=== PATIENT | male | born 1975 | race Caucasian/White ===

== ENCOUNTER 2020-02-04 09:38 | Day surgery (SDC) | payer OTHER ==
[~2020-02-04] VITALS: Ht 175.3 cm; Wt 87.4 kg
[2020-02-04 10:56] VITALS: BP 124/90; PULSE 64; TEMP 98.1
[2020-02-04 14:00] VITALS: BP 138/86; PULSE 78; TEMP 98.2
--- NOTE | 2020-02-04 14:00 | NUR ---
Pt to [facility] bay 6 via cart from ENDO. Pt awake and alert. Pt having small amounts of bleeding from nares. Ice pack provided. Water, applesauce given per pt request. Pt refuses drip pad at this time. Pt denies pain or nausea. Call light within reach.
[2020-02-04 14:15] VITALS: BP 121/82; PULSE 71
--- NOTE | 2020-02-04 14:15 | NUR ---
Pt continues to rest. No change in bleeding. Denies needs. Will continue to monitor.
[2020-02-04 14:30] VITALS: BP 121/82; PULSE 68
--- NOTE | 2020-02-04 14:30 | NUR ---
Pt continues to rest. Pt states "I think the bleeding is starting to slow down." Pt tolerating food and fluids without difficulties. Will continue to monitor. Call light within reach.
[2020-02-04 14:45] VITALS: BP 138/76; PULSE 79
--- NOTE | 2020-02-04 14:45 | NUR ---
Pt continues to rest. Denies needs. Call light within reach.
[2020-02-04] MEDS ORDERED: NORCO 325 MG-7.1 TAB PO (14:47)
[2020-02-04] MEDS ORDERED: CEPHALEXIN500 M1 PO (14:47)
--- NOTE | 2020-02-04 15:00 | NUR ---
Pt up to restroom with stand by assist. Pt voids without difficulties. Pt back to room. IV site discontinued with all parts intact. Will assist pt with dressing to avoid bending over. Will continue to monitor. Call light within reach.
--- NOTE | 2020-02-04 15:20 | NUR ---
Discharge instructions reviewed. Pt voices understanding. IV site discontinued with all parts intact. Pt escorted to private car via wheel chair. Pt accompanied home by his .
[2020-02-04 17:19] VITALS: BP 138/86; PULSE 77; TEMP 98.3
== END 2020-02-04 15:20 | disposition home or self-care (01) ==
LOC: SDCO 09:38
DX: J34.2 Deviated nasal septum (principal); J34.3 Hypertrophy of nasal turbinates; G47.33 Obstructive sleep apnea (adult) (pediatric); J30.2 Other seasonal allergic rhinitis; J34.89 Other specified disorders of nose and nasal sinuses
CPT/HCPCS: J0330; J0690; J1100; J1885; J2405; J2704; J3010; J7120

== ENCOUNTER 2020-04-27 08:33 | Day surgery (SDC) | payer OTHER ==
[~2020-04-27] VITALS: Ht 175.3 cm; Wt 86.6 kg
[~2020-04-27 08:33] MED LIST: CEPHALEXIN500 M1 PO; NORCO 325 MG-7.1 TAB PO
[2020-04-27 09:26] VITALS: BP 133/86; PULSE 46; TEMP 97.7
--- NOTE | 2020-04-27 09:34 | NUR ---
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
--- NOTE | 2020-04-27 10:50 | NUR ---
AMBULATED TO BATHROOM AND TOLERATED WELL.
--- NOTE | 2020-04-27 11:11 | NUR ---
DR VAZQUEZ IS TALKING WITH PATIENT AND .
[2020-04-27 13:10] VITALS: BP 154/90; PULSE 61; TEMP 97.4
--- NOTE | 2020-04-27 13:10 | NUR ---
TO RM 7 PER CART FROM PACU. DROWSY, BUT ORIENTED X3 TALKING TO STAFF AND . DENIES PAIN OR DISOCMFORT. DENIES NAUSEA OR VOMITING.
[2020-04-27 13:25] VITALS: BP 142/84; PULSE 62
--- NOTE | 2020-04-27 13:25 | NUR ---
PATIENT C/O O2 TUBING ITCHING HIS NOSE AND REMOVED. O2 SAT 93% ON ROOM AIR. RECEIVED WATER AND TAKING SIPS.
[2020-04-27 13:40] VITALS: BP 148/79; PULSE 52
--- NOTE | 2020-04-27 13:40 | NUR ---
CONTINUES TO DOZE ON AND OFF. TAKING SIPS OCCASIONALLY
[2020-04-27 13:55] VITALS: BP 118/83; PULSE 58
--- NOTE | 2020-04-27 13:55 | NUR ---
RESTING AND STATED HE FEELS "PRETTY GOOD"
--- NOTE | 2020-04-27 14:25 | NUR ---
AMBULATED TO BATHROOM WITH STAND BY ASSIST. VOIDED AND AMBULATED BACK TO BED.
--- NOTE | 2020-04-27 14:40 | NUR ---
RECEIVED DISCHARGE INSTRUCTIONS VERBALIZED UNDERSTANDING. DURING SIGNING HIS HIS DISCHARGE INSTRUCTIONS FELT DIZZY AND BACAME DIAPHORETIC. LAYED BACK DOWN.
--- NOTE | 2020-04-27 14:55 | NUR ---
PATIENT SAT UP TO GET DRESSED AND BACAME DIZZY AND DIAPHORETIC AGAIN. LAYED BACK DOWN AND RESTING.
--- NOTE | 2020-04-27 15:20 | NUR ---
PATIENT DISCHARGED PER WC BY NURSING STAFF TO PRIVATE CAR IN CARE OF HIS MAUDE.
== END 2020-04-27 15:34 | disposition home or self-care (01) ==
LOC: SDCO
DX: G47.33 Obstructive sleep apnea (adult) (pediatric) (principal); U07.1 COVID-19; J34.2 Deviated nasal septum; J34.3 Hypertrophy of nasal turbinates; Z99.89 Dependence on other enabling machines and devices; Z79.899 Other long term (current) drug therapy; Z82.49 Family history of ischemic heart disease and other diseases of the circulatory system
CPT/HCPCS: J0330; J0690; J1100; J1170; J1885; J2405; J2704; J3010; J7120